=== PATIENT | male | born 1940 | race Caucasian/White ===

== ENCOUNTER 2025-06-06 09:25 | Oncology outpatient (recurring) (ONCR) | payer OTHER, SELFPAY | END 2025-07-06 23:59 | disposition home or self-care (01) | PROVIDERS: PCP Nurse Practitioner; Visit Provider Nurse Practitioner | DX: C44.90 Unspecified malignant neoplasm of skin, unspecified (principal); D69.6 Thrombocytopenia, unspecified; R53.83 Other fatigue; Z85.46 Personal history of malignant neoplasm of prostate | CPT/HCPCS: 99205 ==